=== PATIENT | female | born 1995 | race Two or more races ===

== ENCOUNTER 2019-12-15 08:45 | Inpatient (IN) | payer OTHER ==
[~2019-12-15] VITALS: Ht 160 cm; Wt 104.3 kg
[2019-12-15] MEDS ORDERED: HIGH POTENCY I134 MG PO (10:31)
== END 2019-12-24 11:27 | disposition home or self-care (01) | DRG 741 ==
LOC: O/R 12-22 05:40 → OB/GYN 12-22 05:40 → SURH 12-22 08:45 → OB/GYN 12-22 18:59
PROVIDERS: ADMIT Obstetrics & Gynecology Gynecologic Oncology; ATTEND Obstetrics & Gynecology Gynecologic Oncology
PROC: 0UT20ZZ Resection of Bilateral Ovaries, Open Approach (ICD-10-PCS; 2019-12-22)
PROC: 07BC0ZX Excision of Pelvis Lymphatic, Open Approach, Diagnostic (ICD-10-PCS; 2019-12-22)
PROC: 0UB70ZX Excision of Bilateral Fallopian Tubes, Open Approach, Diagnostic (ICD-10-PCS; 2019-12-22)
PROC: 0UT90ZZ Resection of Uterus, Open Approach (ICD-10-PCS; principal; 2019-12-22 16:45)
DX: C54.1 Malignant neoplasm of endometrium (principal); N72 Inflammatory disease of cervix uteri